=== PATIENT | female | born 1960 | race Caucasian/White ===

== ENCOUNTER 2019-04-26 05:00 | Emergency (ER) | payer BC, OTHER ==
[~2019-04-26] VITALS: Ht 172.7 cm; Wt 77.1 kg
[2019-04-26] MEDS ORDERED: ALPRAZOLAM XR3 MG PO (05:07)
[2019-04-26] MEDS ORDERED: ADDERALL 20 MG20 MG PO (05:08)
[2019-04-26 05:42] LABS: ABSOLUTE NEUTROPHILS 3.8 thou/uL (1.4-8.2); BASOPHILS 0.5 % (0.0-2.0); EOSINOPHILS 0.5 % (0.0-3.0); HEMATOCRIT 41.4 % (37.0-47.0); HEMOGLOBIN 13.7 gm/dL (12.0-15.0); LYMPHOCYTES 21.5 % (24.0-44.0); MCH 30.4 pg (26.0-34.0); MCV 92.1 fL (80.0-100.0); MONOCYTES 5.8 % (1.0-8.0); PLATELET COUNT 155 thou/uL (150-400); POLYS 71.7 % (36.0-66.0); RBC 4.49 mil/uL (4.20-5.00); RDW 12.8 % (10.5-14.5); WBC 5.2 thou/uL (4.0-11.0)
[2019-04-26 05:52] LABS: ANION GAP 11 mmol/L (7-16); BUN 20 mg/dL (7-18); CALCIUM 9.1 mg/dL (8.5-10.1); CHLORIDE 101 mmol/L (98-107); CO2 25 mmol/L (21-32); CREATININE 1.5 mg/dL (0.6-1.0); GLUCOSE 135 mg/dL (74-106); SODIUM 137 mmol/L (136-145)
[2019-04-26 06:02] LABS: MAGNESIUM 1.8 mg/dL (1.8-2.4); TROPONIN-I <0.06 ng/mL (<0.06)
[2019-04-26] MEDS ORDERED: ZOFRAN ODT4 MG PO (06:28)
[2019-04-26 07:44] VITALS: BP 142/89
--- NOTE | 2019-05-02 15:34 | EKG ---
[facility] [place] [address] ELECTROCARDIOGRAM REPORT Name: FRANDY CADET Room #: [facility]#: [id number] Admission: 04/26/19 Attend Phys: Discharge: 04/26/19 Date of : 64 Report #: [id number] THIS REPORT FOR: cc: Bob Oconnell MD, Bryan W. MD Park, Jin S. MD ~ THIS REPORT FOR: //name// [facility] ED Test Date: 2019-04-26 Test Time: 05:16:14 Pat Name: FRANDY CADET Department: Room: Gender: F [employer] Operator: ZACH : 1960 Requested By: Tiana Carrington Order Number: [id number] MD: Jason Armstrong Measurements Intervals [place] Rate: 77 P: 32 IA: 146 QRS: 0 QRSD: 86 T: 60 QT: 376 QTc: 426 Interpretive Statements Sinus rhythm Probable left atrial enlargement No previous ECG available for comparison Electronically Signed On 04-26-2019 12:53:31 TRANSFORMATION ANALYST by Jason Armstrong [email or web address] <ELECTRONICALLY SIGNED> By: Jason Armstrong MD 04/26/19 1253 0516 05 MD ANAHY Shea
== END 2019-04-26 07:48 | disposition home or self-care (01) ==
LOC: ER 05:00
PROVIDERS: Emergency Medicine Emergency Medical Services
DX: E86.0 Dehydration (principal); J10.1 Influenza due to other identified influenza virus with other respiratory manifestations; R55 Syncope and collapse; Z88.2 Allergy status to sulfonamides

== ENCOUNTER → 2020-08-03 | Outpatient (CLI) | payer BC, OTHER ==
[~2020-08-03] MED LIST: ADDERALL 20 MG20 MG PO; ALPRAZOLAM XR3 MG PO; PROZAC 10 MG CA10 MG PO; ZOFRAN ODT4 MG PO
[2020-08-03 13:19] LABS: HEMOGLOBIN 13.7 gm/dL (12.0-15.0); MCH 31.9 pg (26.0-34.0); MCHC 34.3 g/dL (28.0-37.0); MCV 93.2 fL (80.0-100.0); RBC 4.29 mil/uL (4.20-5.00); WBC 5.8 thou/uL (4.0-11.0)
--- NOTE | 2020-08-03 13:25 | EKG ---
[place] [address] [facility] [place] [address] ELECTROCARDIOGRAM REPORT Name: FRANDY CADET Room #: [facility]#: [id number] Admission: 08/03/20 Attend Phys: Ritesh Miranda MD Discharge: Date of : 64 Report #: [id number] [facility] Test Date: 2020-08-03 Test Time: 13:14:10 Pat Name: FRANDY CADET Department: Room: Gender: F Data Processing Control Clerk: DEVAN MANN : 1960 Requested By: Ritesh Miranda Order Number: [id number] MD: Deepak Sanabria Measurements Intervals [place] Rate: 63 P: 30 MT: 143 QRS: 16 QRSD: 104 T: 58 QT: 404 QTc: 414 Interpretive Statements Sinus rhythm Minimal ST elevation, inferior leads Compared to ECG 04/26/2019 05:16:14 ST (T wave) deviation now present Electronically Signed On 08-03-2020 13:25:16 CDT by Deepak Sanabria [email or web address] <ELECTRONICALLY SIGNED> By: Deepak Sanabria MD, [facility] 08/03/20 1325 1314 1314 Deepak Sanabria MD, FAC /EPI
[2020-08-03 13:33] LABS: ALBUMIN 3.6 g/dL (3.4-5.0); CALCIUM 9.2 mg/dL (8.5-10.1); CREATININE 1.3 mg/dL (0.6-1.0); POTASSIUM 4.3 mmol/L (3.5-5.1)
[2020-08-03 13:36] LABS: INR 0.94; PROTIME 10.3 Seconds (10.5-12.1)
[2020-08-03 13:38] LABS: URINE BILIRUBIN NEGATIVE (Negative); URINE BLOOD 1+ (Negative); URINE COLOR YELLOW; URINE GLUCOSE-RANDOM* NEGATIVE (Negative); URINE KETONES NEGATIVE (Negative); URINE PROTEIN (DIPSTICK) TRACE (Negative); URINE UROBILINOGEN 0.2 E.U./dl (0.2-1.0)
[2020-08-03 13:40] LABS: URINE CLARITY HAZY; URINE LEUKOCYTES-REFLEX 3+ (Negative); URINE NITRITE-REFLEX POSITIVE (Negative)
[2020-08-03 13:50] LABS: BACTERIA-REFLEX >30 Many /HPF (None Seen); CASTS None Seen /LPF (None Seen); SQUAMOUS >10 Many /LPF (0-3); URINE RBC 3-10 Few /HPF (NONE SEEN); URINE WBC-REFLEX >25 Many /HPF (0-5)
[2020-08-03 13:51] LABS: CRYSTALS None Seen /LPF (None Seen)
== END ==
LOC: PAC 12:37
PROVIDERS: ATTEND Orthopaedic Surgery
DX: Z01.812 Encounter for preprocedural laboratory examination (principal); Z01.810 Encounter for preprocedural cardiovascular examination; M19.90 Unspecified osteoarthritis, unspecified site; R94.31 Abnormal electrocardiogram [ECG] [EKG]

== ENCOUNTER 2020-08-09 12:55 | Observation (INO) | payer BC, OTHER ==
[~2020-08-09] VITALS: Ht 172.7 cm; Wt 89.8 kg
[2020-08-09 14:08] LABS: URINE BILIRUBIN NEGATIVE (Negative); URINE BLOOD 1+ (Negative); URINE CLARITY CLOUDY; URINE COLOR YELLOW; URINE GLUCOSE-RANDOM* NEGATIVE (Negative); URINE KETONES NEGATIVE (Negative); URINE LEUKOCYTES 2+ (Negative); URINE NITRITE POSITIVE (Negative); URINE PROTEIN (DIPSTICK) NEGATIVE (Negative); URINE UROBILINOGEN 0.2 E.U./dl (0.2-1.0)
[2020-08-09 14:31] VITALS: BP 165/93
[2020-08-09 14:35] LABS: CASTS None Seen /LPF (None Seen); SQUAMOUS 4-10 Moderate /LPF (0-3)
[2020-08-09 14:37] LABS: BACTERIA >30 Many /HPF (None Seen); CRYSTALS None Seen /LPF (None Seen); URINE RBC 3-10 Few /HPF (NONE SEEN)
[2020-08-09 18:21] VITALS: BP 150/92
[2020-08-09 19:21] VITALS: BP 135/82
[2020-08-10 04:19] VITALS: BP 129/72
--- NOTE | 2020-08-10 04:59 | NUR ---
RECEIVED CARE OF THIS PATIENT AT 1900. PATIENT ALERT AND ORIENTED X4. USES BEDPAN. C/O PAIN AND N/V, MED GIVEN FOR ALL. HAS DIANE DRESSING AND POLAR ICE IN R KNEE. HAS MELYSSA SCD'S ANF TEDS ON. SLEPT LITTLE THIS SHIFT.
[2020-08-10 07:50] VITALS: BP 138/84
--- NOTE | 2020-08-10 13:55 | NUR ---
PT ADMITTED RELATED TO RELATED TO RT TOTAL KNEE REPLACEMENT. CM REVIEWED CHART AND SPOKE WITH CARE TEAM. CM MET WITH PT AT BEDSIDE THIS DAY. PT APPEARED TO BE A&O X4. CM ROLE INTRODUCED. PT INDICATED SHE LIVES IN A HOUSE ALONE WITH 1 STEP TO ENTER AND ALL NEEDS ON 1 LEVEL UPON ENTRY. PT INDICATED SHE HAD A FWW AND A CANE FOR HOME USE. PT INDICATED SHE IS ESTABLISHED WITH OP THERAP[facility]. IT IS ANTICIPATED THAT PT WILL BE MEDICALLY STABLE TO DC HOME THIS DAY LONG HER HEADACH IS RESOLVED. PT HAS ALL NEEDED DME AND IS ESTABLISHED WITH OP THERAPY. NO OTHER CM INTERVENTION INDICATED. CASE CLOSED.
--- NOTE | 2020-08-10 14:54 | NUR ---
Received awake on bed. Due medications given as prescribed, able to swallow meds w/o difficulty. On MS, not on telemetry; no complains and signs of chest pain, crushing sensation and heaviness. On room air. On regular diet- tolerating well; no abdominal pain noted. Continent of bowel and bladder. With D51/2NS at 100cc/hr, infusing well at L FA. Falls bundle in place. S/P Rt knee surgery 08/09; DIANE dressing C/D/I; JOSE hose, polar pack and SCDs in place. Complained of nausea, vomitted approx 30ml and headache- PRN medications given as prescribed. PT evaluation done- able to walk in the hallway with PT Kaden and able to sit out on the chair. Pt seen and examined by WALT Ndiaye, pending discharge orders made once headache resolves- onetime dose of 2 headache meds given as prescribed; informed pt about pending discharge orders, she said that she wants to have meds first and will let me know once she's feeling better- CM and shelton human resources office manager informed re: this. To continue monitoring patient.
[2020-08-10 15:48] VITALS: BP 138/84
--- NOTE | 2020-08-12 11:33 | O ---
[facility] [place] [address] OPERATIVE REPORT Name: FRANDY CADET Room #: 442-P [facility] Odalys Corral#: [id number] Admission: 08/09/20 Attend Phys: Ritesh Miranda MD Discharge: 08/10/20 Date of : 64 Report #: [id number] THIS REPORT FOR: cc: Bob Oconnell MD, Bryan W. MD Abraham, Scott M. MD ~ DOC #: [id number] Ritesh Miranda MD DATE OF SERVICE: 08/09/2020 PREOPERATIVE DIAGNOSIS: Right knee osteoarthritis. POSTOPERATIVE DIAGNOSIS: Right knee osteoarthritis. PROCEDURE: Right total knee arthroplasty using Navio robotic assistance. SURGEON: Ritesh Miranda MD. WEATHER REPORTER: Genet Ndiaye PA-C. INDICATION FOR WEATHER REPORTER: Throughout the case extensive retraction and manipulation of the knee was required. This was afforded to me by my banking assistant. ANESTHESIA: LMA with adductor canal block. IMPLANTS: Valderrama and Nephew size 5 Journey II BCS Oxinium femur, size 3 tibia, size 32 patella and a size 9 polyethylene. TOURNIQUET TIME: 47 minutes. ESTIMATED BLOOD LOSS: 25 mL COMPLICATIONS: None. SPECIMENS: None. CONDITION UPON LEAVING THE OR: Stable. INDICATIONS FOR PROCEDURE: The patient is a 60-year-old female with right knee osteoarthritis. She had failed conservative measures for this and after discussion with her, she elected for right total hip arthroplasty. DESCRIPTION OF PROCEDURE: Risks, benefits, alternatives, complications were discussed in detail with the patient including but not limited to risk of anesthesia, risk of damage to nerves, arteries, blood vessels, risk for infection, bleeding, risk for continued knee pain, need for reoperation. [address] [address] OPERATIVE REPORT Name: CHICHILindsayFRANDY F Room #: 442-P [facility] Odalys Corral#: [id number] Admission: 08/09/20 Attend Phys: Ritesh Miranda MD Discharge: 08/10/20 Date of : 64 Report #: [id number] Informed consent was obtained from the patient. Right knee was appropriately marked in the preoperative holding area. IV Ancef was given for preoperative antibiotics. Adductor canal block was placed by Anesthesia. She was brought to the operating room and placed in supine position on the operating table. LMA anesthesia was induced without complication. Tourniquet was placed on the right thigh. Right lower extremity was prepped and draped in normal sterile fashion. Timeout was performed properly identifying the patient and procedure as well as instrumentation and implants. All in the operating room in agreement. Right lower extremity was exsanguinated, tourniquet was inflated. Tourniquet time was 47 minutes. She had a previous curvilinear medial scar and this was opened with a 10 blade through the skin. Dissection was taken down sharply to the fascia and deep flaps were developed medially and laterally. Fresh 10 blade was used to make a medial parapatellar arthrotomy and the knee was inspected. There was moderate medial and lateral osteoarthritis with severe patellofemoral osteoarthritis. ACL and PCL were removed sharply. Reference pins were placed in the femur and the tibia. The knee was digitally mapped using the [employer] robotic system. Intraoperative plan was made and we sized the size 5 femur, the size 3 tibia and a 10 spacer. After acceptance of the intraoperative plan, the distal femoral cut was made with Navio bur. Distal femoral cutting block was pinned in place and chamfer cuts were made. Attention was turned to the tibia. Remainder of the menisci were removed with Bovie cautery. Tibial resection guide was pinned in place using Navio for placement. Tibial resection was made. Flexion and extension gaps were then checked and found to have good balance in flexion and extension both medially and laterally. Tibia was sized, found to be a size 3. Size 3 tibial trial was placed, pinned and punched. Size 5 femoral trial was placed and the box cut was made. This was then trialed with a size 9 polyethylene and size 9 polyethylene demonstrated 1-1.5 mm of laxity medially and laterally throughout range of motion of the knee. 9 mm of bone was resected from the posterior surface of the patella and a size 32 patellar trial button was placed. Knee was taken through range of motion, found to be stable and found to have good patellar tracking. Trial components were removed. Bone ends were thoroughly irrigated with normal saline. A final size 3 tibia, size 5 Journey II BCS Oxinium femur and a size 32 patella were cemented in place using standard cementation techniques. While the cement cured, a periarticular injection consisting of morphine, ropivacaine, epinephrine, and Toradol was placed around the knee joint capsule. After the cement cured, tourniquet was deflated. Hemostasis was obtained with Bovie cautery. A final size 9 polyethylene was placed. A gram of vancomycin was placed deep in the joint. Fascia was closed with 0 Vicryl. Skin was closed with 2-0 Vicryl, skin staple and a DIANE dressing was applied. The patient tolerated this procedure well and went to recovery room under care of Anesthesia postoperatively. Ritesh Miranda MD [facility] [address] [address] OPERATIVE REPORT Name: FRANDY CADET Room #: 442-P [facility] Odalys Corral#: [id number] Admission: 08/09/20 Attend Phys: Ritesh Miranda MD Discharge: 08/10/20 Date of : 64 Report #: [id number] <ELECTRONICALLY SIGNED> By: Ritesh Miranda MD 08/12/20 1133 1517 1725 Ritesh Miranda MD /nt
== END 2020-08-10 17:36 | disposition home or self-care (01) ==
LOC: OR → 4S 17:42
PROVIDERS: ADMIT Orthopaedic Surgery; ATTEND Orthopaedic Surgery
DX: M17.11 Unilateral primary osteoarthritis, right knee (principal); E86.0 Dehydration; Z79.899 Other long term (current) drug therapy
CPT/HCPCS: 27447; S2900; 50010; 50101; 50415; 50954; 51130; 51225; 51320; 51412; 52001; 52282; 53000; 53078; 53365; 56527; 56528; 57095; 57103; 57110; 57127; 57180; 62110; 62900; 64042; 70005

== ENCOUNTER 2020-09-08 10:32 | Observation (INO) | payer BC, OTHER ==
[~2020-09-08] VITALS: Ht 172.7 cm; Wt 90.7 kg
[2020-09-08] VITALS (10 sets, daily range): BP systolic 155–216; BP diastolic 62–145
[~2020-09-08 10:32] MED LIST changes: +HYDROCODON-ACE1 EAC7 PO
--- NOTE | 2020-09-08 20:31 | NUR ---
Admitted from OR, S/P L knee by Dr Miranda; transferred to bed safely. Vital signs stable. On room air. Due medications given as prescribed. On MS, not on telemetry; no complains and signs of chest pain, crushing sensation and heaviness. Assisted in ADLs. on regular diet- tolerating well; no nausea, no vomiting and no abdominal pain noted. With SL at R AC; D5NS at 100cc/hr, infusing well as ordered. Admission history, education and assessment done. Forms signed at OR. Post op site C/D/I; DIANE dressing, JOSE hose, SCDS and polar pack in place. NVS intact, able to wiggle toes and feel sensation. Pt's relatives visited today- update given. Complained of pain, due PO PRN pain meds given as prescribed. Pain still uncontrolled, BP elevated- paged Dr Miranda's answering service- Dr Simmons called back- Morphine prescribed, given as prescribed; to refer pt to hospitalist if BP remains over 180mmhg, night RN informed. Continent of bowel and bladder, requesting to use bedpan as of now. To continue monitoring patient.
[2020-09-09 02:56] VITALS: BP 140/81
--- NOTE | 2020-09-09 03:14 | NUR ---
PT IS A/O X4 AND IS PLEASANT AND COOPERATIVE. BP ELEVATED DURING THE DAY. WHEN REEVALUATED WAS WNL. AFEBRILE. USING BEDPAN TO VOID. NO BM THIS SHIFT. DIANE DRSG C/D/I. ICE REFILLED TO POLAR PACK. SCD'S AND KNEE HIGH JOSE HOSE IS IN PLACE. C/O PAIN TO LEFT KNEE. PRN PAIN MEDICATION GIVEN DIRECTED. FALL PRECAUTIONS IN PLACE, CALL LIGHT IS WITHIN REACH. WILL CONTINUE TO MONITOR.
[2020-09-09 04:58] VITALS: BP 117/73
[2020-09-09 07:03] VITALS: BP 127/83
--- NOTE | 2020-09-09 09:33 | NUR ---
ASSESSMENT: CM REVIEWED CHART AND MET WITH PATIENT AT THE BEDSIDE. PT IS ALERT AND ORIENTED X4. PT LIVES IN A HOUSE ALONE. PT REPORTS THAT HAS ONE STEP TO ENTER THE HOME AND NO STEPS SHE HAS TO USE ONCE INSIDE. PT REPORTS HAVING A CANE AND WALKER AT HOME. PT STATES SHE PLANS ON DOING OUTPATIENT THERAPY AT [facility]. PT DID WELL WITH PHYSICAL THERAPY THIS AM AND PLANS ARE TO DISCHARGE HOME TODAY. PT REPORTS HAVING A GREAT SUPPORT SYSTEM AND PEOPLE TO TAKE HER TO AND FROM THERAPY. PT DENIES HAVING ANY NEEDS FROM CM .
[2020-09-09] MEDS ORDERED: TRI-BUFFERED A325 M1 PO (12:00)
--- NOTE | 2020-09-09 12:05 | O ---
[facility] [place] [address] OPERATIVE REPORT Name: FRANDY CADET Room #: 444-P [facility] Odalys Corral#: [id number] Admission: 09/08/20 Attend Phys: Ritesh Miranda MD Discharge: Date of : 64 Report #: [id number] THIS REPORT FOR: cc: Bob Oconnell MD, Bryan W. MD Abraham, Scott M. MD ~ DATE OF SERVICE: 09/08/2020 PREOPERATIVE DIAGNOSIS: Left knee osteoarthritis. POSTOPERATIVE DIAGNOSIS: Left knee osteoarthritis. PROCEDURE: Left total knee arthroplasty using Navio robotic assistance. SURGEON: Ritesh Miranda MD. ELECTRIC TRUCK CRANE OPERATOR: Genet Ndiaye PA-C. INDICATION FOR ELECTRIC TRUCK CRANE OPERATOR: Throughout the case, extensive retraction and manipulation of the knee was required. This was afforded to me by my assistant hairstylist. ANESTHESIA: LMA with adductor canal block. IMPLANTS: A Valderrama and Nephew size 5 Journey II BCS Oxinium femur, size 3 tibia, size 11 polyethylene and a size 32 patella. TOURNIQUET TIME: 47 minutes. ESTIMATED BLOOD LOSS: 25 mL COMPLICATIONS: None. SPECIMENS: None. CONDITION UPON LEAVING THE OR: Stable. INDICATIONS FOR PROCEDURE: The patient is a 60-year-old female with left knee osteoarthritis who failed conservative measures for this and after discussion with her, she elected for left total knee arthroplasty. DESCRIPTION OF PROCEDURE: Risks, benefits, alternatives, complications were discussed in detail with the patient including but not limited to risk of anesthesia, risk of damage to nerves, arteries, blood vessels, risk for infection, bleeding, risk for continued knee pain, DVT, PE, and need for reoperation. Informed consent was obtained from the patient. Left knee was appropriately marked in the preoperative holding area. IV Ancef was given for [address] [place] [address] OPERATIVE REPORT Name: FRANDY CADET Room #: 444-P [facility] Odalys Corral#: [id number] Admission: 09/08/20 Attend Phys: Ritesh Miranda MD Discharge: Date of : 64 Report #: [id number] preoperative antibiotics. She was brought to the operating room and placed in supine position on the operating table. LMA anesthesia was induced without complication. Tourniquet was placed on the left thigh. Left lower extremity was prepped and draped in normal sterile fashion. Timeout was performed properly identifying the patient and procedure as well as the instrumentation and implants. All in the operating room in agreement. Left lower extremity was exsanguinated, tourniquet was inflated. Tourniquet time was 47 minutes. Standard midline approach to knee was made with 10 blade through the skin. Dissection was taken down sharply to the fascia and deep flaps were developed medially and laterally. Fresh 10 blade was used to make a medial parapatellar arthrotomy and the knee was inspected. There was moderate medial and lateral compartment osteoarthritis with severe patellofemoral compartment osteoarthritis. ACL and PCL were removed sharply. Reference pins were placed in the femur and the tibia. Knee was then digitally mapped using the [employer] robotic system. Intraoperative plan was made. We sized the size 5 femur and a size 3 tibia with a 10 spacer. After acceptance of the intraoperative plan, the distal femoral cut was made with Navio bur. Distal femoral cutting block was pinned in place and chamfer cuts were made. Attention was turned to the tibia. Remainder of the menisci removed with Bovie cautery. Tibial resection guide was pinned in place using Navio for placement and tibial resection was made. Flexion and extension gaps were checked and found to have good balance in flexion and extension both medially and laterally. Tibia sized, found to be a size 3. A size 3 tibial trial was placed, pinned and punched. Size 5 femoral trial was placed and the box cut was made. This was then trialed with a size 10 and then a size 11 polyethylene. Size 11 polyethylene demonstrated the best balance with 1-2 mm of laxity medial and lateral throughout range of motion of the knee. A 9 mm of bone was resected from the posterior surface of the patella and a size 32 patellar trial button was placed, knee was taken through range of motion, found to be stable, found to have good patellar tracking. Trial components were removed. Bone ends were thoroughly irrigated with normal saline. A final size 3 tibia, size 5 Journey II BCS Oxinium femur and a size 32 patella were cemented in place using standard cementation techniques. While the cement cured, a periarticular injection consisting of morphine, ropivacaine, epinephrine, Toradol was placed around the knee joint capsule. After the cement cured, tourniquet was deflated. Hemostasis was obtained with Bovie cautery. A final size 11 polyethylene was placed. A gram of vancomycin was placed deep in the joint. Fascia was closed with 0 Vicryl. Skin was closed with 2-0 Vicryl, 3-0 Monocryl. Dermabond and a DIANE dressing was applied. The patient tolerated this procedure well and went to recovery room under care of anesthesia postoperatively. <ELECTRONICALLY SIGNED> By: Ritesh Miranda MD 09/09/20 1205 1540 1818 Ritesh Miranda MD /nt
[2020-09-09 12:20] VITALS: BP 127/83
--- NOTE | 2020-09-09 12:37 | NUR ---
RN WENT OVER ALL DISCHARGE TEACH AND ALL QUESTIONS ANSWERED, IV OUT, DISCHARGED TO HOME, WHEELED OUT IN WHEELCHAIR.
== END 2020-09-09 14:42 | disposition home or self-care (01) ==
LOC: OR 10:32 → 4S 15:36 → OR 20:08 → 4S 09-09 14:42
PROVIDERS: ADMIT Orthopaedic Surgery; ATTEND Orthopaedic Surgery
DX: M17.12 Unilateral primary osteoarthritis, left knee (principal)
CPT/HCPCS: 50010; 50101; 50415; 50954; 51130; 51225; 51320; 52001; 52282; 53000; 53078; 53365; 54118; 56527; 56528; 57095; 57103; 57110; 57127; 57180; 62110; 62900; 64039; 70005